=== PATIENT | female | born 1950 | race Two or more races ===

== ENCOUNTER 2020-10-04 18:49 | Inpatient (IN) | payer MEDICARE ==
[~2020-10-04] VITALS: Ht 162.6 cm; Wt 65.3 kg
[2020-10-04 21:42] LABS: BASOPHILS % (AUTO) 0.3 % (0.0-2.0); EOSINOPHILS % (AUTO) 0.3 % (1.0-6.0); HEMATOCRIT 44.3 % (36-46); HEMOGLOBIN 15.1 g/dL (12.0-16.0); LYMPHOCYTES # (AUTO) 0.7 K/uL (1.0-4.8); LYMPHOCYTES % (AUTO) 12.3 % (22.0-44.0); MEAN CORPUSCULAR HEMOGLOBIN 41.8 pg (26.0-34.0); MEAN CORPUSCULAR HGB CONC 34.1 G/dL (31.0-37.0); MEAN CORPUSCULAR VOLUME 123 fL (80-100); MONOCYTES # (AUTO) 0.2 K/uL (0.1-1.0); MONOCYTES % (AUTO) 4.3 % (2.0-9.0); NEUTROPHILS # (AUTO) 4.7 K/uL (1.8-7.7); NEUTROPHILS % (AUTO) 82.8 % (40.0-70.0); PLATELET COUNT (AUTO) 171 K/uL (150-450); RED BLOOD CELL COUNT(AUTO) 3.61 MIL/uL (4.00-5.20); RED CELL DISTRIBUTION WIDTH 12.7 % (11.5-14.5)
[2020-10-04 21:54] LABS: ANION GAP 9 mmol/L (8-16); CALCIUM, TOTAL 9.3 mg/dL (8.8-10.5); CARBON DIOXIDE 27 mmol/L (22-29); CHLORIDE 105 mmol/L (98-107); CREATININE 0.96 mg/dL (0.60-1.30); GLOMERULAR FILTR. RATE CALC 58 mL/min (>60); GLUCOSE,RANDOM 142 mg/dL (70-110); POTASSIUM 4.3 mmol/L (3.5-5.1); SODIUM SERUM 141 mmol/L (136-145); UREA NITROGEN, BLOOD 27 mg/dL (7-18)
[2020-10-04 21:58] LABS: ALANINE AMINOTRANSFERASE 36 U/L (12-78); ALBUMIN 3.8 g/dL (3.4-5.0); ALKALINE PHOSPHATASE 85 U/L (46-116); ASPARTATE AMINOTRANSFERASE 24 U/L (15-37); BILIRUBIN,TOTAL 0.7 mg/dL (0.1-1.0); TOTAL PROTEIN, SERUM 7.5 g/dL (6.4-8.2)
[2020-10-04 22:33] LABS: COVID AG,FIA SOURCE NASOPHARYNGEAL
[2020-10-04] MEDS ORDERED: ZOLPIDEM TARTRATE 10 MG TABLET PO PRN (22:45)
[2020-10-04] MEDS ORDERED: HALOPERIDOL 5 MG TABLET PO PRN (22:45)
[2020-10-04] MEDS ORDERED: LORazepam 2 MG TABLET PO PRN (22:45)
[2020-10-05 01:39] VITALS: BP 117/59
[2020-10-05] MEDS ORDERED: MAG HYDROX/AL HYDROX/SIMETH ES 30 ML SUSPENSION UDCUP PO PRN (06:00)
[2020-10-05] MEDS ORDERED: BENZOCAINE/MENTHOL LOZENGE PO PRN (06:00)
[2020-10-05] MEDS ORDERED: LOPERAMIDE HCL 2 MG CAPSULE PO PRN (06:00)
[2020-10-05] MEDS ORDERED: IBUPROFEN 600 MG TABLET PO PRN (06:00)
[2020-10-05] MEDS ORDERED: BACITRACIN 28 GM OINTMENT TP PRN (06:00)
[2020-10-05] MEDS ORDERED: OMEPRAZOLE 20 MG CAPSULE PO PRN (06:00)
[2020-10-05] MEDS ORDERED: MAGNESIUM HYDROXIDE SUSPENSION 30 ML UDCUP PO PRN (06:00)
[2020-10-05] MEDS ORDERED: PETROLATUM,WHITE 28 GM JELLY TP PRN (06:00)
[2020-10-05] MEDS ORDERED: DOCUSATE SODIUM 100 MG CAPSULE PO PRN (06:00)
[2020-10-05] MEDS ORDERED: ALBUTEROL SULFATE HFA 90 MCG/PUFF 8 GM INHALER IH PRN (06:00)
[2020-10-05] MEDS ORDERED: CloNIDine HCL 0.1 MG TABLET PO PRN (06:00)
[2020-10-05] MEDS ORDERED: ONDANSETRON HCL 4 MG TABLET PO PRN (06:00)
[2020-10-05] MEDS ORDERED: ACETAMINOPHEN 325 MG TABLET PO PRN (06:00)
[2020-10-05 07:39] LABS: CHOL/HDL RATIO 4.2 (3.9-5.7)
[2020-10-05 11:21] VITALS: BP 96/64
[2020-10-05 16:00] VITALS: BP 110/59
[2020-10-05] MEDS: OLANZapine 10 MG TABLET PO SCH (20:31)
[2020-10-06 08:00] VITALS: BP 111/59
[2020-10-06 18:17] VITALS: BP 119/60
[2020-10-06] MEDS: OLANZapine 10 MG TABLET PO SCH (20:21)
[2020-10-07 08:00] VITALS: BP 119/76
[2020-10-07 16:00] VITALS: BP 126/73
[2020-10-07] MEDS: OLANZapine 10 MG TABLET PO SCH (20:06)
[2020-10-08 08:47] VITALS: BP 119/63
[2020-10-08 16:47] VITALS: BP 108/63
[2020-10-08] MEDS: OLANZapine 10 MG TABLET PO SCH (20:10)
[2020-10-09 08:52] VITALS: BP 104/69
[2020-10-09 16:00] VITALS: BP 126/77
[2020-10-09] MEDS: OLANZapine 10 MG TABLET PO SCH (20:48)
[2020-10-10 08:43] VITALS: BP 134/80
[2020-10-10 16:00] VITALS: BP 132/74
[2020-10-10 17:16] LABS: COVID AG,FIA SOURCE NASOPHARYNGEAL
[2020-10-10] MEDS: OLANZapine 10 MG TABLET PO SCH (21:14)
[2020-10-11 00:48] VITALS: BP 119/74
[2020-10-11 17:00] VITALS: BP 100/68
[2020-10-11] MEDS: OLANZapine 10 MG TABLET PO SCH (20:05)
[2020-10-12 08:00] VITALS: BP 109/73
[2020-10-12 16:00] VITALS: BP 98/62
[2020-10-12] MEDS: OLANZapine 10 MG TABLET PO SCH (21:16)
[2020-10-13 09:00] VITALS: BP 117/72
[2020-10-13 16:00] VITALS: BP 112/68
[2020-10-13] MEDS: OLANZapine 10 MG TABLET PO SCH (20:33)
[2020-10-14 08:00] VITALS: BP 113/70
[2020-10-14 15:46] LABS: COVID AG,FIA SOURCE NASOPHARYNGEAL
[2020-10-14 17:55] VITALS: BP 97/58
[2020-10-14] MEDS: OLANZapine 10 MG TABLET PO SCH (20:30)
[2020-10-15 08:22] VITALS: BP 119/84
[2020-10-15 16:00] VITALS: BP 99/68
[2020-10-15] MEDS: OLANZapine 10 MG TABLET PO SCH (20:28)
[2020-10-16 08:30] VITALS: BP 114/77
[2020-10-16] MEDS ORDERED: OLAN10TA3 PO (10:56)
[2020-10-16 16:13] VITALS: BP 100/60
[2020-10-16] MEDS: OLANZapine 10 MG TABLET PO SCH (22:03)
[2020-10-17 08:00] VITALS: BP 122/74
[2020-10-17 16:00] VITALS: BP 102/63
[2020-10-17] MEDS: OLANZapine 10 MG TABLET PO SCH (20:41)
[2020-10-18 07:14] LABS: BASOPHILS % (AUTO) 0.7 % (0.0-2.0); EOSINOPHILS % (AUTO) 5.7 % (1.0-6.0); HEMATOCRIT 38.5 % (36-46); HEMOGLOBIN 12.9 g/dL (12.0-16.0); LYMPHOCYTES # (AUTO) 1.8 K/uL (1.0-4.8); LYMPHOCYTES % (AUTO) 26.1 % (22.0-44.0); MEAN CORPUSCULAR HEMOGLOBIN 40.8 pg (26.0-34.0); MEAN CORPUSCULAR HGB CONC 33.5 G/dL (31.0-37.0); MEAN CORPUSCULAR VOLUME 122 fL (80-100); MONOCYTES # (AUTO) 0.5 K/uL (0.1-1.0); MONOCYTES % (AUTO) 7.7 % (2.0-9.0); NEUTROPHILS % (AUTO) 59.8 % (40.0-70.0); PLATELET COUNT (AUTO) 288 K/uL (150-450); RED BLOOD CELL COUNT(AUTO) 3.17 MIL/uL (4.00-5.20)
[2020-10-18 07:48] LABS: ALANINE AMINOTRANSFERASE 80 U/L (12-78); ALBUMIN 2.9 g/dL (3.4-5.0); ALKALINE PHOSPHATASE 129 U/L (46-116); ANION GAP 6 mmol/L (8-16); ASPARTATE AMINOTRANSFERASE 27 U/L (15-37); BILIRUBIN,TOTAL 0.3 mg/dL (0.1-1.0); CALCIUM, TOTAL 8.8 mg/dL (8.8-10.5); CARBON DIOXIDE 29 mmol/L (22-29); CHLORIDE 110 mmol/L (98-107); CHOL/HDL RATIO 4.6 (3.9-5.7); CHOLESTEROL 175 mg/dL (131-200); CREATININE 0.85 mg/dL (0.60-1.30); GLOMERULAR FILTR. RATE CALC > 60 mL/min (>60); GLUCOSE,RANDOM 93 mg/dL (70-110); HDL CHOLESTEROL 38 mg/dL (40-60); LDL CHOL (CALC.) 103 mg/dL (0-130); PHOSPHORUS 3.2 mg/dL (2.5-4.9); POTASSIUM 4.1 mmol/L (3.5-5.1); SODIUM SERUM 145 mmol/L (136-145); TOTAL PROTEIN, SERUM 6.5 g/dL (6.4-8.2); TRIGLYCERIDES 168 mg/dL (15-150); UREA NITROGEN, BLOOD 25 mg/dL (7-18)
[2020-10-18 08:13] LABS: HEMOGLOBIN A1C 5.6 % (3.8-5.6)
[2020-10-18 08:29] VITALS: BP 122/74
[2020-10-18 14:14] LABS: % IRON SATURATION 15.3 % (22-44); IRON, SERUM 43 mcg/dL (50-175); TOTAL IRON BINDING CAPACITY 280 mcg/dL (250-450)
[2020-10-18 17:03] VITALS: BP 105/58
[2020-10-18] MEDS: OLANZapine 10 MG TABLET PO SCH (20:52)
[2020-10-19 08:00] VITALS: BP 118/52
[2020-10-19] MEDS: MULTIVITAMINS WITH IRON TABLET PO SCH (08:44)
[2020-10-19] MEDS: OLANZapine 10 MG TABLET PO SCH (20:10)
[2020-10-20 08:00] VITALS: BP 104/66
[2020-10-20] MEDS: MULTIVITAMINS WITH IRON TABLET PO SCH (09:32)
[2020-10-20 16:08] VITALS: BP 125/76
[2020-10-20] MEDS: OLANZapine 10 MG TABLET PO SCH (21:19)
[2020-10-21 08:00] VITALS: BP 110/68
[2020-10-21] MEDS: MULTIVITAMINS WITH IRON TABLET PO SCH (10:11)
[2020-10-21 16:00] VITALS: BP 120/89
[2020-10-21 16:07] LABS: COVID AG,FIA SOURCE NASOPHARYNGEAL
[2020-10-21] MEDS: OLANZapine 10 MG TABLET PO SCH (20:24)
[2020-10-22 08:00] VITALS: BP 124/76
[2020-10-22] MEDS: MULTIVITAMINS WITH IRON TABLET PO SCH (09:06)
[2020-10-22 16:00] VITALS: BP 96/51
[2020-10-22] MEDS: OLANZapine 10 MG TABLET PO SCH (20:27)
[2020-10-23 08:00] VITALS: BP 114/80
[2020-10-23] MEDS: MULTIVITAMINS WITH IRON TABLET PO SCH (08:14)
[2020-10-23 16:00] VITALS: BP 102/67
[2020-10-23] MEDS: OLANZapine 10 MG TABLET PO SCH (20:49)
[2020-10-24 08:32] VITALS: BP 107/78
[2020-10-24] MEDS: MULTIVITAMINS WITH IRON TABLET PO SCH (09:15)
== END 2020-10-24 17:02 | disposition home or self-care (01) | DRG 885 ==
LOC: EMS 18:49 → 3EX 22:31
PROVIDERS: ADMIT Psychiatry & Neurology Psychiatry; ATTEND Psychiatry & Neurology Psychiatry
DX: F20.9 Schizophrenia, unspecified (principal); N18.30 Chronic kidney disease, stage 3 unspecified; G47.00 Insomnia, unspecified; K59.00 Constipation, unspecified; F41.9 Anxiety disorder, unspecified; I12.9 Hypertensive chronic kidney disease with stage 1 through stage 4 chronic kidney disease, or unspecified chronic kidney disease; F17.210 Nicotine dependence, cigarettes, uncomplicated; Z20.822 Contact with and (suspected) exposure to COVID-19; F11.10 Opioid abuse, uncomplicated; F15.10 Other stimulant abuse, uncomplicated
CPT/HCPCS: 83036; 83540; 83550; 83735; 84100; 84443; 87426; 99285; G0378; G0480